=== PATIENT | female | born 1985 | race Hispanic/Latino ===

== ENCOUNTER 2018-04-05 07:19 | Emergency (ER) | payer SELFPAY ==
[2018-04-05] MEDS ORDERED: NA CHLORIDE 0.9% 1,000 ML ONE (08:05)
[2018-04-05 08:19] LABS: Absolute Lymphocytes (CBC) 0.9 K/uL (0.7-4.9); Absolute Monocytes 0.4 K/uL (0.1-1.3); Absolute Neutrophil 3.2 K/uL (1.8-8.0); Basophils % 0.3 % (0-1.3); Eosinophils % 2.6 % (0-4.4); Hematocrit 29.9 % (36.0-45.0); Lymphocytes % 18.9 % (15.3-44.8); MCV 82.1 fL (80-100); MPV 9.1 fL (7.6-11.3); Monocytes % 7.8 % (3.3-12.3); RBC Red Blood Cell Count 3.64 M/uL (3.86-4.86)
[2018-04-05 08:57] LABS: Potassium 3.4 mmol/L (3.5-5.1)
[2018-04-05] MEDS ORDERED: KETOROLAC 30 MG/ML INJ ONE (09:23)
--- NOTE | 2018-04-05 10:49 | ER ---
Nurse's Notes [facility] Name: Wendy Garland Age: 32 yrs Sex: Female : 1985 Arrival Date: 04/05/2018 Time: 07:23 Bed 20 Private MD: Ligia Mosley Diagnosis: Fever, unspecified;Acute pharyngitis Presentation: 04/05 07:42 Presenting complaint: Patient states: has had pressure in head and mild neck and back iw pain X 3 days, also has sore throat. Transition of care: patient was not received from another setting of care. Onset of symptoms was April 02, 2018. Risk Assessment: Do you want to hurt yourself or someone else? Patient reports no desire to harm self or others. Initial Sepsis Screen: Does the patient meet any 2 criteria? No. Patient's initial sepsis screen is negative. Does the patient have a suspected source of infection? No. Patient's initial sepsis screen is negative. Care prior to arrival: None. 07:42 Method Of Arrival: Ambulatory iw 07:42 Acuity: KIMBERLY 3 iw Triage Assessment: 07:45 Headache History: Denies prior headaches. General: Appears in no apparent distress. jl7 uncomfortable, Behavior is calm, cooperative, appropriate for age, Pt reports temperature of 103 F., reports taking ibuprofen prior to arrival.. Pain: Complains of pain in head, neck and throat. Pain does not radiate. Pain currently is 7 out of 10 on a pain scale. Quality of pain is described as sharp, Pain began Thurs evening. Also complains of decreased appetite. 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 - Social history:: Smoking status: Patient/guardian denies using tobacco. - Ebola Screening: : Patient negative for fever greater than or equal to 101.5 degrees Fahrenheit, and additional compatible Ebola Virus Disease symptoms Patient denies exposure to infectious person Patient denies travel to an Ebola-affected area in the 21 days before illness onset No symptoms or risks identified at this time. Screenin:45 Abuse screen: Denies threats or abuse. Denies injuries from another. Nutritional jl7 screening: No deficits noted. Tuberculosis screening: No symptoms or risk factors identified. Fall Risk IV access (20 points). Total Luna Fall Scale indicates No Risk (0-24 pts). Assessment: 07:45 General: Appears in no apparent distress. uncomfortable, Behavior is calm, cooperative, jl7 appropriate for age. Pain: Complains of pain in forehead, bilateral aspects of neck, and throat Pain does not radiate. Pain currently is 7 out of 10 on a pain scale. Quality of pain is described as sharp, throbbing, Pain began 2-3 days ago. Is continuous, Noted to be grimacing. Neuro: Level of Consciousness is awake, alert, obeys commands, Oriented to person, place, time, situation, Moves all extremities. Gait is steady, Speech is normal, Facial symmetry appears normal, Pupils are PERRLA. Cardiovascular: Patient's skin is warm and dry. Respiratory: Airway is patent Respiratory effort is even, unlabored, Respiratory pattern is regular, symmetrical. GI: No signs and/or symptoms were reported involving the gastrointestinal system. : No signs and/or symptoms were reported regarding the genitourinary system. EENT: Throat is clear has enlarged tonsils bilaterally. Derm: Skin is pink, warm \\T\\ dry. Musculoskeletal: No signs and/or symptoms reported regarding the musculoskeletal system. 08:09 Reassessment: Pt states "My boyfriend thinks I got sick from eating at [employer] in [address] I ate a burger, was almost finished eating it when I saw rat poop on the bun and the terry. I told the respiratory manager who said it was nothing. And I called the health department and let them know too." Pt reports eating at [employer] on and evening is when she started feeling sick. 09:00 Reassessment: Patient and/or family updated on plan of care and expected duration. Pain jl7 level reassessed. Patient is alert, oriented x 3, equal unlabored respirations, skin warm/dry/pink. 10:00 Reassessment: Patient and/or family updated on plan of care and expected duration. Pain jl7 level reassessed. Patient is alert, oriented x 3, equal unlabored respirations, skin warm/dry/pink. Patient states feeling better. Patient states symptoms have improved. Vital Signs: 07:45 BP 130 / 77; Pulse 77; Resp 18 S; Temp 98.6(O); Pulse Ox 98% on R/A; Weight 66.22 kg; iw Height 5 ft. 1 in. (154.94 cm); Pain 6/10; 08:04 BP 103 / 77; Pulse 80; Resp 16; Temp 98.9(O); Pulse Ox 99% on R/A; mh5 09:14 BP 95 / 68; Pulse 69; Resp 16; Pulse Ox 98% on R/A; mh5 10:00 BP 99 / 59; Pulse 50; Resp 16; Pulse Ox 99% ; Pain 0/10; jl7 10:50 BP 96 / 58; Pulse 60; Resp 16; Pulse Ox 99% ; Pain 0/10; jl7 07:45 Body Mass Index 27.59 (66.22 kg, 154.94 cm) ED Course: 07:23 Patient arrived in ED. mr 07:23 Ligia Mosley MD is Private Physician. mr 07:33 El Field MD is Attending Physician. gs 07:43 Triage completed. iw 07:45 Arm band placed on. iw 07:45 Patient has correct armband on for positive identification. Placed in gown. Bed in low jl7 position. Call light in reach. Side rails up X 1. Pulse ox on. NIBP on. 07:52 Paco Gonzales RN is Primary Nurse. 7 08:03 Initial lab(s) drawn, by ct, sent to lab. Flu and/or RSV swab sent to lab. Strep swab 5 sent to lab. Inserted saline lock: 22 gauge in left antecubital area, using aseptic technique. Blood collected. 08:03 Lyman Screen Profile Sent. 5 08:04 Influenza Screen (a \\T\\ B) Sent. 5 08:04 Strep Sent. 5 08:04 Basic Metabolic Panel Sent. 5 08:04 CBC with Diff Sent. 5 10:55 No provider procedures requiring assistance completed. IV discontinued, intact, jl7 bleeding controlled, No redness/swelling at site. Pressure dressing applied. Administered Medications: 08:09 Drug: NS 0.9% 1000 ml Route: IV; Rate: 1 bolus; Site: left antecubital; jl7 09:10 Follow up: Response: No adverse reaction; IV Status: Completed infusion jl7 09:26 Drug: TORadol 30 mg Route: IVP; Site: left antecubital; jl7 09:56 Follow up: Response: No adverse reaction; Pain is decreased jl7 Outcome: 10:49 Discharge ordered by . bill 10:55 Discharged to home ambulatory. jl7 10:55 Condition: stable 10:55 Discharge instructions given to patient, Instructed on discharge instructions, follow up and referral plans. medication usage, Demonstrated understanding of instructions, follow-up care, medications, Prescriptions given X 1. 10:55 Patient left the ED. jl7 Signatures: Rhonda Petersen Irene, RN RN iw Martinez, Maria mh5 Leal, Jahala, RN RN jl7 El Field MD MD
--- NOTE | 2018-04-05 10:49 | EDPHYS ---
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 - Social history:: Smoking status: Patient/guardian denies using tobacco. - Ebola Screening: : Patient negative for fever greater than or equal to 101.5 degrees Fahrenheit, and additional compatible Ebola Virus Disease symptoms Patient denies exposure to infectious person Patient denies travel to an Ebola-affected area in the 21 days before illness onset No symptoms or risks identified at this time. Vital Signs: 07:45 BP 130 / 77; Pulse 77; Resp 18 S; Temp 98.6(O); Pulse Ox 98% on R/A; Weight 66.22 kg; iw Height 5 ft. 1 in. (154.94 cm); Pain 6/10; 08:04 BP 103 / 77; Pulse 80; Resp 16; Temp 98.9(O); Pulse Ox 99% on R/A; mh5 09:14 BP 95 / 68; Pulse 69; Resp 16; Pulse Ox 98% on R/A; mh5 10:00 BP 99 / 59; Pulse 50; Resp 16; Pulse Ox 99% ; Pain 0/10; jl7 10:50 BP 96 / 58; Pulse 60; Resp 16; Pulse Ox 99% ; Pain 0/10; jl7 07:45 Body Mass Index 27.59 (66.22 kg, 154.94 cm) iw MDM: 07:39 Patient medically screened. 04/05 07:39 Order name: CBC with Diff; Complete Time: 08:25 04/05 07:39 Order name: Basic Metabolic Panel; Complete Time: 09:17 04/05 07:39 Order name: Strep; Complete Time: 08:57 04/05 07:39 Order name: Influenza Screen (a \T\ B); Complete Time: 08:57 04/05 07:39 Order name: Bleckley Screen Profile; Complete Time: 10:45 04/05 08:36 Order name: Throat Culture EDMS Administered Medications: 08:09 Drug: NS 0.9% 1000 ml Route: IV; Rate: 1 bolus; Site: left antecubital; [facility] 09:10 Follow up: Response: No adverse reaction; IV Status: Completed infusion [facility] 09:26 Drug: TORadol 30 mg Route: IVP; Site: left antecubital; 7 09:56 Follow up: Response: No adverse reaction; Pain is decreased [facility] Disposition: 04/05/18 10:49 Discharged to Home. Impression: Fever, unspecified, Acute pharyngitis. - Condition is Stable. - Discharge Instructions: Fever, Adult, Viral Infections, Dssi-Bt-Heus. - Prescriptions for Naprosyn 500 mg Oral Tablet - take 1 tablet by ORAL route 2 times per day take with food; 20 tablet. - Medication Reconciliation Form, Thank You Letter, Antibiotic Education, Prescription Opioid Use form. - Follow up: Private Physician; When: 1 - 2 days; Reason: Re-evaluation by your physician. Addendum: 04/26/2018 16:12 Addendum: CC- fever sore throat HPI - onset 2 days ago, throat pain with swallowing, no g s dysphagia voice changes, body aches neck pain back pain. no alleviating factors. PMH/Allergies reviewed/Sochx-lives at home VSS- Gen-no distress nontoxic Head- normal no injury ENT- throat erythema no mass nl voice no stridor, Neck- no mass no meningismus. CV-rrr no m P - lungs cta, nl work of breathing GI-ab soft nontender Skin-warm no rash Neuro-no deficits, a/o x 4 MDM-ddx bact infection virus, bronchitis , symptoms resolved will discharge home explained results. Signatures: Dispatcher [employer] EDMS Kimberly Russo RN RN iw Leal, Jahala, RN RN jl7 El Field MD MD Corrections: (The following items were deleted from the chart) 04/05 10:55 10:49 04/05/2018 10:49 Discharged to Home. Impression: Fever, unspecified; Acute jl7 pharyngitis. Condition is Stable. Forms are Medication Reconciliation Form, Thank You Letter, Antibiotic Education, Prescription Opioid Use. Follow up: Private Physician; When: 1 - 2 days; Reason: Re-evaluation by your physician. gs
[2018-04-05 11:01] VITALS: TEMP 98.9
[2018-04-05 11:03] VITALS: O2SAT 99
[2018-04-05 11:04] VITALS: BP 96/58
== END 2018-04-05 10:55 | disposition home or self-care (01) ==
LOC: ER 07:19
DX: R50.9 Fever, unspecified (principal); J02.9 Acute pharyngitis, unspecified; J45.909 Unspecified asthma, uncomplicated
CPT/HCPCS: 36415; 80048; 85025; 86308; 87070; 87081; 87804; 96361; 96374; 99284; J7030

== ENCOUNTER 2018-06-28 21:47 | Emergency (ER) | payer SELFPAY ==
[2018-06-28] MEDS ORDERED: IBUPROFEN 200 MG TAB PO ONE (23:42)
[2018-06-28] MEDS ORDERED: HYDROCODONE/APAP 7.5/325 MG TAB ONE (23:42)
[2018-06-28] MEDS ORDERED: IBUPROFEN 400 MG TAB ONE (23:42)
[2018-06-29 00:28] LABS: Urine Bacteria <20 /HPF (<20); Urine Culture Reflex Order NOT NEEDED; Urine RBC <5 /HPF (NONE SEEN)
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
[2018-06-29 01:18] VITALS: TEMP 98.2
[2018-06-29 01:21] VITALS: BP 108/92; O2SAT 100
[2018-06-29 01:54] LABS: Urine Blood 1+ (NEG); Urine Glucose NEGATIVE (NEG); Urine Protein NEGATIVE (NEG)
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
== END 2018-06-29 01:13 | disposition home or self-care (01) ==
LOC: ER 21:47
DX: S16.1XXA Strain of muscle, fascia and tendon at neck level, initial encounter (principal); S40.012A Contusion of left shoulder, initial encounter; M41.9 Scoliosis, unspecified; V49.40XA Driver injured in collision with unspecified motor vehicles in traffic accident, initial encounter; F41.9 Anxiety disorder, unspecified; F32.9 Major depressive disorder, single episode, unspecified
CPT/HCPCS: 71046; 72040; 72100; 72170; 81003; 81015; 81025; 99283

== ENCOUNTER 2018-12-24 08:52 | Emergency (ER) | payer SELFPAY ==
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
[2018-12-24] MEDS ORDERED: HYDROCODONE/APAP 10/325 TAB ONE (09:44)
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
--- NOTE | 2018-12-24 11:35 | EDPHYS ---
Physician Documentation [facility] Name: Wendy Garland Age: 33 yrs Sex: Female : 1985 Arrival Date: 12/24/2018 Time: 08:55 Bed 19 Private MD: Ligia Mosley ED Physician Michael Bell HPI: 12/24 09:42 This 33 yrs old Female presents to ER via Ambulatory with complaints of Fall kdr Injury, Hip Pain, Leg Pain. 09:42 Details of fall: The patient fell from an upright position, while walking. Onset: The kdr symptoms/episode began/occurred suddenly, last night. Associated injuries: The patient sustained injury to the low back, pain, left Achilles and left heel, decreased range of motion, swelling. Severity of symptoms: At their worst the symptoms were mild, moderate, just prior to arrival, in the emergency department the symptoms are unchanged. The patient has not experienced similar symptoms in the past. The patient has not recently seen a physician. The patient fell down some steps and felt a pop like a rubber band pop in the back of her left calf. She has minimal swelling of the left ankle \T\ foot. Very tender at insertion site of Achilles tendon. She has limited plantar/dorsiflexion of the foot primarily due to pain. Neuro intact distal to the injury though initially, she had numbness and tingling to the great toe on the same side - that has resolved. 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 - Social history:: Smoking status: Patient/guardian denies using tobacco. - Immunization history: Last tetanus immunization: - up to date. - Ebola Screening: : No symptoms or risks identified at this time. ROS: 09:42 Constitutional: Negative for fever, chills, and weight loss, Eyes: Negative for injury, kdr pain, redness, and discharge, Neck: Negative for injury, pain, and swelling, Cardiovascular: Negative for chest pain, palpitations, and edema, Respiratory: Negative for shortness of breath, cough, wheezing, and pleuritic chest pain, Abdomen/GI: Negative for abdominal pain, nausea, vomiting, diarrhea, and constipation, Back: Negative for injury and pain, : Negative for injury, bleeding, discharge, and swelling, Skin: Negative for injury, rash, and discoloration, Neuro: Negative for headache, weakness, numbness, tingling, and seizure activity. Psych: Negative for depression, anxiety, suicide ideation, homicidal ideation, and hallucinations, Allergy/Immunology: Negative for hives, rash, and allergies, Endocrine: Negative for neck swelling, polydipsia, polyuria, polyphagia, and marked weight changes, Hematologic/Lymphatic: Negative for swollen nodes, abnormal bleeding, and unusual bruising. 09:42 MS/extremity: Positive for injury or acute deformity, decreased range of motion, pain, swelling, tenderness, of the left Achilles and left heel. Exam: 09:42 Constitutional: This is a well developed, well nourished patient who is awake, alert, kdr and in no acute distress. 09:42 Musculoskeletal/extremity: Extremities: ROM: limited active range of motion, in the left lateral ankle, lateral aspect of left foot, left Achilles, left heel, left medial ankle, medial aspect of left foot, anterior aspect of left ankle and dorsum of left foot, limited passive range of motion, Circulation is intact in all extremities. Sensation intact. Weight bearing: is unable to bear weight, Tendon exam: postive for Due to pain, the patient has limited ROM of the foot. Vital Signs: 09:11 BP 106 / 76; Pulse 61; Resp 16; Temp 98.2; Pulse Ox 100% on R/A; Pain 8/10; hb 10:00 BP 122 / 74; Pulse 66; Resp 16; Pulse Ox 100% on R/A; hb 11:00 BP 112 / 74; Pulse 61; Resp 16; Pulse Ox 100% on R/A; hb Vladimir Coma Score: 09:11 Eye Response: spontaneous(4). Verbal Response: oriented(5). Motor Response: obeys hb commands(6). Total: 15. Trauma Score (Adult): 09:11 Eye Response: spontaneous(1); Verbal Response: oriented(1); Motor Response: obeys hb commands(2); Systolic BP: > 89 mm Hg(4); Respiratory Rate: 10 to 29 per min(4); Vladimir Score: 15; Trauma Score: 12 10:00 Eye Response: spontaneous(1); Verbal Response: oriented(1); Motor Response: obeys hb commands(2); Systolic BP: > 89 mm Hg(4); Respiratory Rate: 10 to 29 per min(4); Vladimir Score: 15; Trauma Score: 12 11:00 Eye Response: spontaneous(1); Verbal Response: oriented(1); Motor Response: obeys hb commands(2); Systolic BP: > 89 mm Hg(4); Respiratory Rate: 10 to 29 per min(4); Kingsland Score: 15; Trauma Score: 12 Procedures: 09:42 Splinting: Splint applied to lateral aspect of left calf, left lateral ankle and kdr lateral aspect of left foot using Orthoglass splint, applied by tech. post reduction film - Examined by me, post splint application: neurovascular intact, Patient tolerated well. MDM: 09:42 Data reviewed: vital signs, nurses notes, radiologic studies. Counseling: I had a kdr detailed discussion with the patient and/or guardian regarding: the historical points, exam findings, and any diagnostic results supporting the discharge/admit diagnosis, radiology results, the need for outpatient follow up. 11:35 Patient medically screened. kdr 12/24 09:30 Order name: Lumbar Spine (3 Views) XRAY; Complete Time: 11:28 kdr 12/24 09:30 Order name: Ankle Left 3 View XRAY; Complete Time: 11:28 kdr 12/24 09:33 Order name: Splint: Short leg from knee to toes; Complete Time: 11:38 kdr 12/24 09:33 Order name: Crutches; Complete Time: 11:38 kdr Administered Medications: 09:34 Drug: [place] 10 mg-325 mg 1 tabs Route: PO; em 10:00 Follow up: Response: No adverse reaction; Pain is decreased em Disposition: 12/24/18 11:35 Discharged to Home. Impression: Other specified injury of left Achilles tendon. - Condition is Fair. - Discharge Instructions: Partial (Incomplete) Achilles Tendon Rupture. - Prescriptions for Tylenol- Codeine #3 300-30 mg Oral Tablet - take 2 tablet by ORAL route every 6 hours As needed; 30 tablet. - Medication Reconciliation Form, Thank You Letter, Prescription Opioid Use, Work release form form. - Follow up: Private Physician; When: 2 - 3 days; Reason: If symptoms return, Further diagnostic work-up, Recheck today's complaints, Continuance of care, Re-evaluation by your physician. Follow up: Long Neal MD; When: 2 - 3 days; Reason: If symptoms return, Further diagnostic work-up, Recheck today's complaints, Continuance of care, Re-evaluation by your physician. - Problem is new. - Symptoms have improved. - Notes: This is a serious injuury and requires prompt follow-up and possible repair Signatures: Dispatcher [employer] Michael Parmar MD MD [facility] Earl Perez, AIR TRAFFIC CONTROL EQUIPMENT REPAIRER AIR TRAFFIC CONTROL EQUIPMENT REPAIRER em Moriah Gutierrez, RN RN Corrections: (The following items were deleted from the chart) 11:49 11:35 12/24/2018 11:35 Discharged to Home. Impression: Other specified injury of left em Achilles tendon. Condition is Fair. Forms are Medication Reconciliation Form, Thank You Letter, Antibiotic Education, Prescription Opioid Use. Follow up: Private Physician; When: 2 - 3 days; Reason: If symptoms return, Further diagnostic work-up, Recheck today's complaints, Continuance of care, Re-evaluation by your physician. Follow up: Long Neal; When: 2 - 3 days; Reason: If symptoms return, Further diagnostic work-up, Recheck today's complaints, Continuance of care, Re-evaluation by your physician. Problem is new. Symptoms have improved. kdr
--- NOTE | 2018-12-24 11:35 | ER ---
Nurse's Notes [facility] Name: Wendy Garland Age: 33 yrs Sex: Female : 1985 Arrival Date: 12/24/2018 Time: 08:55 Bed 19 Private MD: Ligia Mosley Diagnosis: Other specified injury of left Achilles tendon Presentation: 12/24 09:11 Presenting complaint: Patient states: Slipped on stairs last night, felt and heard a hb snapping sound in left calf, c/o pain in left low back, left hip, left calf, and left ankle 8/10. Ambulated to room without assistance, favoring left side. Transition of care: patient was not received from another setting of care. Onset of symptoms was December 24, 2018 at 02:00. Risk Assessment: Do you want to hurt yourself or someone else? Patient reports no desire to harm self or others. Care prior to arrival: None. 09:11 Method Of Arrival: Ambulatory 09:11 Acuity: KIMBERLY 4 09:16 Mechanism of Injury: Fall down steps. Trauma event details: Injury occurred in the [facility], Injury occurred: at home. Injury occurred: December 24, 2018 Injury occurred at: 02:00. 09:17 Initial Sepsis Screen: Does the patient meet any 2 criteria? No. Patient's initial em sepsis screen is negative. Does the patient have a suspected source of infection? No. Patient's initial sepsis screen is negative. 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 LMP 12/06/2018 Trauma Activation: Not Applicable Physician: ED Physician; Name: ; Notified At: ; Arrived At: Physician: General Surgeon; Name: ; Notified At: ; Arrived At: Physician: Radiology; Name: ; Notified At: ; Arrived At: Physician: Respiratory; Name: ; Notified At: ; Arrived At: Physician: Lab; Name: ; Notified At: ; Arrived At: Historical: - Allergies: :14 NKA; hb - Home Meds: :14 Abilify 5 mg Oral tab 1 tab once daily [Active]; albuterol sulfate 90 mcg/actuation Inhl HFAA 2 puffs as needed [Active]; Celexa 40 mg Oral tab 1 tab once daily [Active]; DOXYPEN daily [Active]; Neurontin 100 mg Oral cap 100 mg in am, 100 mg mid-day and 200 mg at night [Active]; levothyroxine oral 1 tab once daily [Active]; - PMHx: 09:14 Anxiety; Asthma; Bronchitis; Depression; insomnia; scoliosis; hb - PSHx: 09:14 Appendectomy; Tubal ligation; hb - Immunization history:: Adult Immunizations up to date. - Social history:: Smoking status: Patient/guardian denies using tobacco. - Immunization history: Last tetanus immunization: - up to date. - Ebola Screening: : No symptoms or risks identified at this time. Screenin:14 Abuse screen: Denies threats or abuse. Denies injuries from another. Nutritional hb screening: No deficits noted. Tuberculosis screening: No symptoms or risk factors identified. Fall Risk None identified. Primary Survey: :14 NO uncontrolled hemorrhage observed. A: The patient is alert. Airway: patent. hb Breathing/Chest: Respiratory pattern: regular, Respiratory effort: spontaneous, unlabored, Breath sounds: clear, bilaterally. Chest inspection: symmetrical rise and fall of the chest. Circulation: Pulses: palpable . Skin color: pink, Skin temperature: warm, dry. Disability Alert. Exposure/Environment: There is no evidence of uncontrolled external bleeding. 10:00 Reassessment Airway Airway Patent Breathing/Chest Respiratory pattern Regular hb Respiratory effort Spontaneous Unlabored Chest inspection Symmetrical Circulation Color Goodman Temperature Warm Dry Disability Alert. 11:00 Reassessment Airway Airway Patent Breathing/Chest Respiratory pattern Regular hb Respiratory effort Spontaneous Unlabored Chest inspection Symmetrical Circulation Color Goodman Temperature Warm Dry Disability Alert. Secondary Survey: :14 HEENT: No deficits noted. Gastrointestinal: No deficits noted. : No deficits noted. hb No signs and/or symptoms were reported regarding the genitourinary system. Musculoskeletal: Reports pain in left low back, left hip, left calf, left ankle. Assessment: 09:17 General: Appears in no apparent distress. Behavior is calm, cooperative. Pain: Pain hb currently is 8 out of 10 on a pain scale. Neuro: Level of Consciousness is awake, alert, obeys commands, Oriented to person, place, time, situation. EENT: No deficits noted. No signs and/or symptoms were reported regarding the EENT system. Cardiovascular: No deficits noted. Respiratory: Airway is patent Trachea midline Respiratory effort is even, unlabored, Respiratory pattern is regular, symmetrical, Breath sounds are clear bilaterally. GI: No signs and/or symptoms were reported involving the gastrointestinal system. : No signs and/or symptoms were reported regarding the genitourinary system. Derm: Skin is intact, is healthy with good turgor, Skin is pink, warm \T\ dry. Musculoskeletal: Reports pain in left low back, left hip, left calf, left ankle. 10:00 Reassessment: Patient appears in no apparent distress at this time. No changes from previously documented assessment. Patient and/or family updated on plan of care and expected duration. Pain level reassessed. Patient is alert, oriented x 3, equal unlabored respirations, skin warm/dry/pink. 10:38 Reassessment: Patient appears in no apparent distress at this time. Patient and/or em family updated on plan of care and expected duration. Pain level reassessed. Patient is alert, oriented x 3, equal unlabored respirations, skin warm/dry/pink. pending x-ray results Patient states feeling better. 11:00 Reassessment: Patient appears in no apparent distress at this time. Patient and/or hb family updated on plan of care and expected duration. Pain level reassessed. Patient is alert, oriented x 3, equal unlabored respirations, skin warm/dry/pink. Vital Signs: 09:11 BP 106 / 76; Pulse 61; Resp 16; Temp 98.2; Pulse Ox 100% on R/A; Pain 8/10; hb 10:00 BP 122 / 74; Pulse 66; Resp 16; Pulse Ox 100% on R/A; hb 11:00 BP 112 / 74; Pulse 61; Resp 16; Pulse Ox 100% on R/A; hb Vladimir Coma Score: 09:11 Eye Response: spontaneous(4). Verbal Response: oriented(5). Motor Response: obeys hb commands(6). Total: 15. Trauma Score (Adult): 09:11 Eye Response: spontaneous(1); Verbal Response: oriented(1); Motor Response: obeys hb commands(2); Systolic BP: > 89 mm Hg(4); Respiratory Rate: 10 to 29 per min(4); Clinton Score: 15; Trauma Score: 12 10:00 Eye Response: spontaneous(1); Verbal Response: oriented(1); Motor Response: obeys hb commands(2); Systolic BP: > 89 mm Hg(4); Respiratory Rate: 10 to 29 per min(4); Clinton Score: 15; Trauma Score: 12 11:00 Eye Response: spontaneous(1); Verbal Response: oriented(1); Motor Response: obeys hb commands(2); Systolic BP: > 89 mm Hg(4); Respiratory Rate: 10 to 29 per min(4); Vladimir Score: 15; Trauma Score: 12 ED Course: 08:55 Patient arrived in ED. as 08:56 Ligia Mosley MD is Private Physician. as 09:10 Michael Bell MD is Attending Physician. kdr 09:13 Triage completed. hb 09:13 Earl Perez LVN is Primary Nurse. em 09:13 Arm band placed on. hb 09:14 Patient has correct armband on for positive identification. Bed in low position. Call hb light in reach. Side rails up X 1. 09:16 Patient maintains SpO2 saturation greater than 95% on room air. Thermoregulation: warm hb blanket given to patient. 09:52 X-ray completed. Patient tolerated procedure well. Patient moved back from radiology. jb2 09:53 Lumbar Spine (3 Views) XRAY In Process Unspecified. EDMS 09:53 Ankle Left 3 View XRAY In Process Unspecified. EDMS 11:29 Long Neal MD is Referral Physician. kdr 11:38 No provider procedures requiring assistance completed. Patient did not have IV access hb during this emergency room visit. Administered Medications: 09:34 Drug: [place] 10 mg-325 mg 1 tabs Route: PO; em 10:00 Follow up: Response: No adverse reaction; Pain is decreased em Intake: 11:38 PO: 0ml; Total: 0ml. hb Output: 11:38 Urine: 0ml; Total: 0ml. hb Outcome: 11:35 Discharge ordered by MD. kdr 11:38 Discharged to home ambulatory. hb 11:38 Condition: stable 11:38 Discharge instructions given to patient, Instructed on discharge instructions, follow up and referral plans. medication usage, Demonstrated understanding of instructions, follow-up care, medications, Prescriptions given X 1. 11:38 Patient's length of stay was not longer than 2 hours. 11:49 Patient left the ED. em Signatures: Dispatcher [employer] EDMS Michael Bell MD MD kdr Buechter, Jesse jb2 Earl Perez, LUMPIA WRAPPER MAKER LUMPIA WRAPPER MAKER Liana Ritter Heather, RN RN hb
[2018-12-24 11:54] VITALS: TEMP 98.2; O2SAT 100
[2018-12-24 11:56] VITALS: BP 112/74
== END 2018-12-24 11:49 | disposition home or self-care (01) ==
LOC: ER 08:52
PROC: 2W3RX1Z Immobilization of Left Lower Leg using Splint (ICD-10-PCS; principal; 2018-12-24)
DX: S99.912A Unspecified injury of left ankle, initial encounter (principal); W10.9XXA Fall (on) (from) unspecified stairs and steps, initial encounter; M54.5 Low back pain; F41.9 Anxiety disorder, unspecified; F32.9 Major depressive disorder, single episode, unspecified; J45.909 Unspecified asthma, uncomplicated
CPT/HCPCS: 72100; 99284

== ENCOUNTER 2019-07-09 12:55 | Emergency (ER) | payer SELFPAY ==
[2019-07-09 13:42] LABS: Urine Blood NEGATIVE (NEG); Urine Glucose NEGATIVE (NEG); Urine Protein NEGATIVE (NEG); Urine Specific Gravity 1.025 (1.005-1.030); Urine pH 5.5 (5.0-7.0)
[2019-07-09] MEDS ORDERED: NA CHLORIDE 0.9% 1,000 ML ONE (13:48)
[2019-07-09 13:58] LABS: Urine Bacteria <20 /HPF (<20); Urine Culture Reflex Order NOT NEEDED; Urine Mucus MOD /HPF (NONE SEEN); Urine RBC <5 /HPF (NONE SEEN)
[2019-07-09 14:02] LABS: Absolute Lymphocytes (CBC) 1.9 K/uL (0.7-4.9); Basophils % 0.4 % (0-1.3); Hematocrit 30.9 % (36.0-45.0); Lymphocytes % 24.8 % (15.3-44.8); MPV 9.7 fL (7.6-11.3); RBC Red Blood Cell Count 3.73 M/uL (3.86-4.86)
[2019-07-09 14:15] LABS: BUN Blood Urea Nitrogen 12 mg/dL (7-18); Bicarbonate 28 mmol/L (21-32); Glucose Level 94 mg/dL (74-106); Potassium 3.7 mmol/L (3.5-5.1); Sodium Level 139 mmol/L (136-145)
[2019-07-09 14:16] LABS: HCG, Quantitative < 1 mIU/mL (1-3)
[2019-07-09] MEDS ORDERED: KETOROLAC 30 MG/ML INJ ONE (14:22)
--- NOTE | 2019-07-09 15:43 | RAD REPORT ---
EXAM DESCRIPTION: CT - Abdomen Pelvis W Contrast - 07/09/2019 3:23 pm CLINICAL HISTORY: lower abdomen pain COMPARISON: CT study September 2017 TECHNIQUE: Biphasic, helical CT imaging of the abdomen and pelvis was performed following 100 ml non -ionic IV contrast. No oral contrast. All CT scans are performed using dose optimization technique as appropriate and may include automated exposure control or mA/KV adjustment according to patient size. FINDINGS: No suspicious findings in the lung bases. The liver, spleen, and pancreas show no suspicious findings. Gallbladder and biliary tree are also wi thout suspicious finding. Symmetric renal function is seen with no hydronephrosis or suspicious renal mass. No pyelonephritis o r acute parenchymal process. Urinary bladder is fully contracted precluding assessment. No bladder ca lculus seen. No acute uterine abnormality. Small physiologic follicles or cysts noted in the ovaries. An acute PUBLIC ADDRESS SYSTEM MECHANIC process is not identifiable. No adrenal abnormalities. No gastric dilatation or wall thickening. No dilated small bowel loops. Appendectomy clips are presen t. Mild wall thickening is present in the descending colon and questionably in the midportion transve rse colon. No mass. A mild colitis is suspected and needs clinical correlation. No free air or pneumatosis. Trace fluid in the cul-de-sac is within physiologic limits. No mass or bulky lymphadenopathy. Small fat only umbilical hernia present. No suspicious bony findings. IMPRESSION: No bowel obstruction, free air or surgically emergent finding. Wall thickening in the mid transverse colon and descending colon are possible sites of a mild colitis . This needs clinical correlation. No acute or PUBLIC ADDRESS SYSTEM MECHANIC process identifiable.
--- NOTE | 2019-07-09 15:58 | ER ---
Nurse's Notes [facility] Name: Wendy Garland Age: 33 yrs Sex: Female : 1985 Arrival Date: 07/09/2019 Time: 12:57 Bed 26 Private MD: Diagnosis: Left sided colitis Presentation: 07/09 13:07 Presenting complaint: Patient states: lower abd pain that began last night, now worse ss when walking and radiates towards bilateral flank. Patient reports positive UPT 06/24. Transition of care: patient was not received from another setting of care. Onset of symptoms was July 08, 2019. Risk Assessment: Do you want to hurt yourself or someone else? Patient reports no desire to harm self or others. Initial Sepsis Screen: Does the patient meet any 2 criteria? No. Patient's initial sepsis screen is negative. Does the patient have a suspected source of infection? No. Patient's initial sepsis screen is negative. Note Patient reports an abnormal cycle, but verbalizes that her pain feels like menstrual cramps, but worse. Care prior to arrival: None. 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 - Social history:: Smoking status: Patient/guardian denies using tobacco. - Ebola Screening: : Patient denies exposure to infectious person Patient denies travel to an Ebola-affected area in the 21 days before illness onset. Screenin:35 Abuse screen: Denies threats or abuse. Nutritional screening: No deficits noted. em Tuberculosis screening: No symptoms or risk factors identified. Fall Risk None identified. Assessment: 13:35 General: Appears in no apparent distress. comfortable, Behavior is calm, cooperative, em appropriate for age, Denies fever. Pain: Complains of pain in suprapubic area Pain currently is 8 out of 10 on a pain scale. Quality of pain is described as crampy. Neuro: Level of Consciousness is awake, alert, obeys commands, Oriented to person, place, time, situation, Appropriate for age. Cardiovascular: Capillary refill < 3 seconds Patient's skin is warm and dry. Respiratory: Airway is patent Respiratory effort is even, unlabored, Respiratory pattern is regular, symmetrical. GI: Abdomen is flat, Bowel sounds present X 4 quads. Abd is soft X 4 quads Abdomen is tender to palpation in suprapubic area, right lower quadrant and left lower quadrant Patient currently denies nausea, vomiting. : Urine is clear, Reports vaginal bleeding that is Denies burning with urination. Derm: Skin is intact, is healthy with good turgor, Skin is pink, warm \T\ dry. Musculoskeletal: Capillary refill < 3 seconds, Range of motion: intact in all extremities. 13:42 General: The previous assessment is accurate, call light remains within reach. . ss 15:12 Reassessment: Patient appears in no apparent distress at this time. wheeled to CT via em wheelchair. Vital Signs: 13:10 Resp 16; Weight 61.23 kg; Height 5 ft. 1 in. (154.94 cm); Pain 8/10; ss 13:22 BP 113 / 82; Pulse 86; Temp 98.6(TE); Pulse Ox 100% on R/A; em 13:10 Body Mass Index 25.51 (61.23 kg, 154.94 cm) ss ED Course: 12:57 Patient arrived in ED. as 13:09 Triage completed. ss 13:10 Arm band placed on left wrist. ss 13:13 Earl Perez LVN is Primary Nurse. em 13:15 David Dumont PA is PHCP. cp 13:15 El Field MD is Attending Physician. cp 13:29 Urine collected: clean catch specimen, clear, zay colored. Patient maintains SpO2 jp3 saturation greater than 95% on room air. 13:30 Bed in low position. Call light in reach. Verbal reassurance given. Pulse ox on. NIBP jp3 on. 13:31 Urine Microscopic Only Sent. jp3 13:45 Initial lab(s) drawn, by me, sent to lab. Inserted saline lock: 22 gauge in right em antecubital area, using aseptic technique. Blood collected. 15:24 CT Abd/Pelvis - IV Contrast Only In Process Unspecified. EDMS 15:57 Nitin So MD is Referral Physician. cp 16:23 No provider procedures requiring assistance completed. IV discontinued, intact, em bleeding controlled, No redness/swelling at site. Pressure dressing applied. Administered Medications: 13:59 Drug: NS 0.9% 1000 ml Route: IV; Rate: 1 bolus; Site: right antecubital; em 16:22 Follow up: IV Status: Completed infusion; IV Intake: 1000ml em 14:26 Drug: TORadol - Ketorolac 15 mg Route: IVP; Site: right antecubital; ss 15:20 Follow up: Response: No adverse reaction; Pain is decreased em 16:21 Drug: metroNIDAZOLE 500 mg Route: PO; em 16:22 Follow up: Response: Medication administered at discharge. em 16:22 Drug: Cipro 500 mg Route: PO; em 16:23 Follow up: Response: Medication administered at discharge. em Intake: 16:22 IV: 1000ml; Total: 1000ml. em Outcome: 15:58 Discharge ordered by MD. cp 16:23 Discharged to home ambulatory. em 16:23 Condition: good 16:23 Discharge instructions given to patient, Instructed on discharge instructions, follow up and referral plans. medication usage, Demonstrated understanding of instructions, follow-up care, medications, Prescriptions given X 4. 16:24 Patient left the ED. em Signatures: Dispatcher [employer] EDEarl Reynolds LVN LVN em Liana Nunes Shelby, RN RN David Bernal PA PA cp Rocael Gomez jp3 Corrections: (The following items were deleted from the chart) 13:10 13:07 Presenting complaint: Patient states: lower abd pain that began last night, now ss worse when walking and radiates towards bilateral flank ss
--- NOTE | 2019-07-09 15:59 | EDPHYS ---
Physician Documentation [facility] Name: Wendy Garland Age: 33 yrs Sex: Female : 1985 Arrival Date: 07/09/2019 Time: 12:57 Bed 26 Private MD: ED Physician El Field HPI: 07/09 13:30 This 33 yrs old Female presents to ER via Ambulatory with complaints of cp Abdominal Pain, Vaginal Bleeding. 13:30 The patient presents with abdominal pain in the lower abdomen. cp 13:30 Onset: The symptoms/episode began/occurred yesterday. The symptoms radiate to back. cp Associated signs and symptoms: Pertinent positives: vaginal bleeding, patient reports positive home test on 06-24-2019, Pertinent negatives: anorexia, blood in stools, chest pain, constipation, diarrhea, dysuria, fever, vomiting. 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 - Social history:: Smoking status: Patient/guardian denies using tobacco. - Ebola Screening: : Patient denies exposure to infectious person Patient denies travel to an Ebola-affected area in the 21 days before illness onset. ROS: 13:35 Constitutional: Negative for body aches, chills, fever, poor PO intake. cp 13:35 Eyes: Negative for injury, pain, redness, and discharge. cp 13:35 ENT: Negative for drainage from ear(s), ear pain, sore throat, difficulty swallowing, difficulty handling secretions. 13:35 Cardiovascular: Negative for chest pain, palpitations. 13:35 Respiratory: Negative for cough, shortness of breath, wheezing. 13:35 Abdomen/GI: Positive for abdominal pain, Negative for vomiting, diarrhea, constipation, anorexia, black/tarry stool, rectal bleeding. 13:35 Back: Positive for radiated pain. 13:35 : Positive for vaginal bleeding, Negative for urinary symptoms. 13:35 Neuro: Negative for altered mental status, headache, weakness. 13:35 All other systems are negative. Exam: 13:45 Constitutional: The patient appears in no acute distress, alert, awake, non-toxic, well cp developed, well nourished. 13:45 Head/Face: Normocephalic, atraumatic. cp 13:45 Eyes: Periorbital structures: appear normal, Conjunctiva: normal, no exudate, no injection, Sclera: no appreciated abnormality, Lids and lashes: appear normal, bilaterally. 13:45 ENT: External ear(s): are unremarkable, Nose: is normal, Mouth: is normal, Posterior pharynx: is normal, airway is patent, no erythema, no exudate. 13:45 Chest/axilla: Inspection: normal, Palpation: is normal, no crepitus, no tenderness. 13:45 Cardiovascular: Rate: normal, Rhythm: regular. 13:45 Respiratory: the patient does not display signs of respiratory distress, Respirations: normal, no use of accessory muscles, no retractions, no splinting, no tachypnea, labored breathing, is not present, Breath sounds: are clear throughout, no decreased breath sounds, no stridor, no wheezing. 13:45 Abdomen/GI: Inspection: abdomen appears normal, Bowel sounds: active, all quadrants, Palpation: soft, in all quadrants, moderate abdominal tenderness, in the right lower quadrant and left lower quadrant, rebound tenderness, is not appreciated, involuntary guarding, is not appreciated. 13:45 Back: pain, of the low back area. 13:45 Skin: no rash present. Vital Signs: 13:10 Resp 16; Weight 61.23 kg; Height 5 ft. 1 in. (154.94 cm); Pain 8/10; ss 13:22 BP 113 / 82; Pulse 86; Temp 98.6(TE); Pulse Ox 100% on R/A; em 13:10 Body Mass Index 25.51 (61.23 kg, 154.94 cm) ss MDM: 13:24 Patient medically screened. cp 15:57 Data reviewed: vital signs, nurses notes, lab test result(s), radiologic studies, CT cp scan. 15:57 Differential diagnosis: diverticulitis, gastritis, Ovarian Torsion, Pelvic Inflammatory cp Disease, Ureterolithiasis, urinary tract infection, , ectopic . 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 Response to treatment: the patient's symptoms have markedly improved after treatment, and as a result, I will discharge patient. ED course: VSS. Pain improved. Will discharge to home for continued monitoring. 07/09 13:16 Order name: Urine Microscopic Only; Complete Time: 14:11 cp 07/09 13:30 Order name: Urine Dipstick--Ancillary (enter results); Complete Time: 14:11 eb 07/09 13:30 Order name: Urine --Ancillary (enter results); Complete Time: 14:11 eb 07/09 13:33 Order name: Quantitative Hcg; Complete Time: 14:20 cp 07/09 13:33 Order name: Abo/rh Typing; Complete Time: 14:20 cp 07/09 13:33 Order name: Basic Metabolic Panel; Complete Time: 14:20 cp 07/09 13:16 Order name: Urine Dipstick-Ancillary (obtain specimen); Complete Time: 13:31 cp 07/09 13:16 Order name: Urine Test (obtain specimen); Complete Time: 13:31 cp 07/09 13:33 Order name: CBC with Diff; Complete Time: 14:11 cp 07/09 14:11 Interpretation: Normal except: RBC 3.73; HGB 10.5; HCT 30.9; RDW 15.7. cp 07/09 14:25 Order name: CT Abd/Pelvis - IV Contrast Only; Complete Time: 15:50 cp 07/09 13:33 Order name: IV Saline Lock; Complete Time: 13:49 cp 07/09 13:33 Order name: Labs collected and sent; Complete Time: 13:49 cp 07/09 13:33 Order name: NPO; Complete Time: 13:49 cp Administered Medications: 13:59 Drug: NS 0.9% 1000 ml Route: IV; Rate: 1 bolus; Site: right antecubital; em 16:22 Follow up: IV Status: Completed infusion; IV Intake: 1000ml em 14:26 Drug: TORadol - Ketorolac 15 mg Route: IVP; Site: right antecubital; ss 15:20 Follow up: Response: No adverse reaction; Pain is decreased em 16:21 Drug: metroNIDAZOLE 500 mg Route: PO; em 16:22 Follow up: Response: Medication administered at discharge. em 16:22 Drug: Cipro 500 mg Route: PO; em 16:23 Follow up: Response: Medication administered at discharge. em Disposition: 07/09/19 15:58 Discharged to Home. Impression: Left sided colitis. - Condition is Stable. - Discharge Instructions: Colitis. - Prescriptions for Bentyl 20 mg Oral Tablet - take 1 tablet by ORAL route every 6 hours As needed; 20 tablet. Cipro 500 mg Oral Tablet - take 1 tablet by ORAL route every 12 hours for 10 days; 20 tablet. Zofran 4 mg Oral Tablet - take 1 tablet by ORAL route every 12 hours As needed; 20 tablet. Metronidazole 500 mg Oral Tablet - take 1 tablet by ORAL route every 8 hours; 30 tablet. - Medication Reconciliation Form, Thank You Letter, Antibiotic Education, Prescription Opioid Use form. - Follow up: Nitin So MD; When: 2 - 3 days; Reason: colitis. - Problem is new. - Symptoms have improved. Signatures: Dispatcher [employer] EDOK Earl Perez, PROGRAM MEDICAL DIRECTOR PROGRAM MEDICAL DIRECTOR Glory Rueda RN RN ss aDvid Dumont PA PA cp Corrections: (The following items were deleted from the chart) 16:24 15:58 07/09/2019 15:58 Discharged to Home. Impression: Left sided colitis. Condition is em Stable. Forms are Medication Reconciliation Form, Thank You Letter, Antibiotic Education, Prescription Opioid Use. Follow up: Nitin So; When: 2 - 3 days; Reason: colitis. Problem is new. Symptoms have improved. cp
[2019-07-09] MEDS ORDERED: CIPROFLOXACIN HCL 500 MG TAB ONE (16:15)
[2019-07-09] MEDS ORDERED: metroNIDAZOLE 500 MG TABLET ONE (16:15)
[2019-07-09 18:54] VITALS: BP 113/82; O2SAT 100
[2019-07-09 19:03] VITALS: TEMP 98.7
== END 2019-07-09 16:24 | disposition home or self-care (01) ==
LOC: ER 12:55
DX: K51.50 Left sided colitis without complications (principal)
CPT/HCPCS: 36415; 74177; 80048; 81003; 81015; 81025; 84702; 85025; 86900; 86901; 96361; 96374; 99284; J7030; Q9967

== ENCOUNTER 2019-07-19 07:38 | Emergency (ER) | payer SELFPAY ==
[2019-07-19 08:10] LABS: Urine Blood NEGATIVE (NEG); Urine Glucose NEGATIVE (NEG); Urine Protein NEGATIVE (NEG); Urine Specific Gravity >1.030 (1.005-1.030)
[2019-07-19] MEDS ORDERED: MORPHINE 2 MG/ML SYR ONE ×2 (08:11→09:16)
[2019-07-19] MEDS ORDERED: FAMOTIDINE 20 MG/2 ML VIAL IV ONE (08:11)
[2019-07-19] MEDS ORDERED: ONDANSETRON 4 MG/2 ML VIAL ONE (08:11)
[2019-07-19] MEDS ORDERED: NA CHLORIDE 0.9% 1,000 ML ONE (08:12)
[2019-07-19 08:15] LABS: Basophils % 0.3 % (0-1.3); Hematocrit 32.1 % (36.0-45.0); Lymphocytes % 29.8 % (15.3-44.8); MPV 9.3 fL (7.6-11.3); RBC Red Blood Cell Count 3.88 M/uL (3.86-4.86)
[2019-07-19 08:31] LABS: Potassium 3.4 mmol/L (3.5-5.1)
[2019-07-19 08:32] LABS: Albumin 3.9 g/dL (3.4-5.0); Bilirubin Direct 0.2 mg/dL (0-0.2); Bilirubin Total 0.9 mg/dL (0.2-1.0); Protein, Total 8.4 g/dL (6.4-8.2)
--- NOTE | 2019-07-19 08:45 | EDPHYS ---
Physician Documentation [facility] Name: Wendy Garland Age: 33 yrs Sex: Female : 1985 Arrival Date: 07/19/2019 Time: 07:40 Bed 5 Private MD: Ligia Mosley ED Physician David Nina HPI: 07/19 08:01 This 33 yrs old Female presents to ER via Ambulatory with complaints of rosamaria Abdominal Pain, Vomiting. 08:01 The patient presents to the emergency department with nausea, vomiting. Onset: The rosamaria symptoms/episode began/occurred 5 day(s) ago. Possible causes: unknown. The symptoms are aggravated by food , The symptoms are alleviated by nothing. Associated signs and symptoms: The patient has no apparent associated signs or symptoms. Severity of symptoms: At their worst the symptoms were mild moderate in the emergency department the symptoms are unchanged. The patient has not experienced similar symptoms in the past. 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 - Social history:: Smoking status: Patient/guardian denies using tobacco. - Ebola Screening: : Patient denies exposure to infectious person Patient denies travel to an Ebola-affected area in the 21 days before illness onset. - Family history:: not pertinent. ROS: 08:01 Constitutional: Negative for fever, chills, and weight loss, Eyes: Negative for injury, rosamaria pain, redness, and discharge, ENT: Negative for injury, pain, and discharge, Neck: Negative for injury, pain, and swelling, Cardiovascular: Negative for chest pain, palpitations, and edema, Respiratory: Negative for shortness of breath, cough, wheezing, and pleuritic chest pain, Back: Negative for injury and pain, : Negative for injury, bleeding, discharge, and swelling, MS/Extremity: Negative for injury and deformity, Skin: Negative for injury, rash, and discoloration, Neuro: Negative for headache, weakness, numbness, tingling, and seizure, Psych: Negative for depression, anxiety, suicide ideation, homicidal ideation, and hallucinations, Allergy/Immunology: Negative for hives, rash, and allergies, Endocrine: Negative for neck swelling, polydipsia, polyuria, polyphagia, and marked weight changes. 08:01 Abdomen/GI: Positive for abdominal pain, of the right upper quadrant, left upper quadrant, right lower quadrant and left lower quadrant. Exam: 08:01 Constitutional: This is a well developed, well nourished patient who is awake, alert, rosamaria and in no acute distress. Head/Face: Normocephalic, atraumatic. Eyes: Pupils equal round and reactive to light, extra-ocular motions intact. Lids and lashes normal. Conjunctiva and sclera are non-icteric and not injected. Cornea within normal limits. Periorbital areas with no swelling, redness, or edema. ENT: Nares patent. No nasal discharge, no septal abnormalities noted. Tympanic membranes are normal and external auditory canals are clear. Oropharynx with no redness, swelling, or masses, exudates, or evidence of obstruction, uvula midline. Mucous membranes moist. Neck: Trachea midline, no thyromegaly or masses palpated, and no cervical lymphadenopathy. Supple, full range of motion without nuchal rigidity, or vertebral point tenderness. No Meningismus. Chest/axilla: Normal chest wall appearance and motion. Nontender with no deformity. No lesions are appreciated. Cardiovascular: Regular rate and rhythm with a normal S1 and S2. No gallops, murmurs, or rubs. Normal PMI, no JVD. No pulse deficits. Respiratory: Lungs have equal breath sounds bilaterally, clear to auscultation and percussion. No rales, rhonchi or wheezes noted. No increased work of breathing, no retractions or nasal flaring. Back: No spinal tenderness. No costovertebral tenderness. Full range of motion. Female : Normal external genitalia. Skin: Warm, dry with normal turgor. Normal color with no rashes, no lesions, and no evidence of cellulitis. MS/ Extremity: Pulses equal, no cyanosis. Neurovascular intact. Full, normal range of motion. Neuro: Awake and alert, GCS 15, oriented to person, place, time, and situation. Cranial nerves II-XII grossly intact. Motor strength 5/5 in all extremities. Sensory grossly intact. Cerebellar exam normal. Normal gait. Psych: Awake, alert, with orientation to person, place and time. Behavior, mood, and affect are within normal limits. 08:01 Abdomen/GI: Inspection: abdomen appears normal, Bowel sounds: normal, Palpation: mild abdominal tenderness, in all quadrants, Liver: no appreciated palpable abnormalities, Hernia: not appreciated. Vital Signs: 08:18 BP 106 / 82; Pulse 61; Resp 18; Temp 98.3; Pulse Ox 100% on R/A; Pain 9/10; ph 09:34 BP 99 / 76; Pulse 67; Resp 18; Temp 98.0; Pulse Ox 99% on R/A; Pain 4/10; ph MDM: 07:42 Patient medically screened. [facility] 08:01 Data reviewed: vital signs, nurses notes, lab test result(s), EKG, radiologic studies, [facility] CT scan, ultrasound. 07/19 08:01 Order name: Basic Metabolic Panel; Complete Time: 08:42 [facility] 07/19 08:01 Order name: CBC with Diff; Complete Time: 08:42 [facility] 07/19 08:01 Order name: Creatinine for Radiology; Complete Time: 08:42 [facility] 07/19 08:01 Order name: Hepatic Function; Complete Time: 08:42 [facility] 07/19 08:01 Order name: Lipase; Complete Time: 08:42 [facility] 07/19 08:04 Order name: Urine Dipstick--Ancillary (enter results); Complete Time: 08:42 07/19 08:01 Order name: US Abdomen Limited; Complete Time: 08:55 [facility] 07/19 08:01 Order name: Abdomen Acute Series XRAY; Complete Time: 08:55 [facility] 07/19 08:04 Order name: Urine --Ancillary (enter results); Complete Time: 08:42 07/19 08:43 Order name: Urine Culture [facility] 07/19 08:01 Order name: IV Saline Lock; Complete Time: 08:07 [facility] 07/19 08:01 Order name: Labs collected and sent; Complete Time: 08:07 [facility] 07/19 08:01 Order name: Urine Dipstick-Ancillary (obtain specimen); Complete Time: 08:08 [facility] 07/19 08:01 Order name: Urine Test (obtain specimen); Complete Time: 08:08 [facility] 07/19 08:56 Order name: PO challenge: juice; Complete Time: 09:33 rosamaria Administered Medications: 08:17 Drug: NS 0.9% 1000 ml Route: IV; Rate: 1 bolus; Site: left antecubital; ph 09:34 Follow up: Response: No adverse reaction; IV Status: Completed infusion; IV Intake: ph 1000ml 08:18 Drug: morphine 2 mg Route: IVP; Site: left antecubital; ph 08:18 Drug: Zofran 4 mg Route: IVP; Site: left antecubital; ph 09:17 Follow up: Response: No adverse reaction ph 08:18 Drug: Pepcid 20 mg Route: IVP; Site: left antecubital; ph 09:17 Follow up: Response: No adverse reaction ph 09:17 Drug: morphine 2 mg Route: IVP; Site: left antecubital; ph 09:33 Follow up: Response: No adverse reaction; Pain is decreased; RASS: Alert and Calm (0) ph 09:18 Drug: Rocephin 1 grams Route: IV; Rate: per protocol; Site: left antecubital; ph 09:33 Follow up: Response: No adverse reaction; IV Status: Completed infusion ph Disposition: 07/19/19 08:45 Discharged to Home. Impression: Abdominal tenderness, Vomiting. - Condition is Stable. - Discharge Instructions: Abdominal Pain, Adult, Nausea and Vomiting, Adult, Nausea and Vomiting, Adult, [id number], Abdominal Pain, Adult, [id number]. - Prescriptions for Bentyl 20 mg Oral Tablet - take 1 tablet by ORAL route every 6 hours As needed; 20 tablet. Pepcid 20 mg Oral Tablet - take 1 tablet by ORAL route every 12 hours for 10 days; 20 tablet. Zofran 4 mg Oral Tablet - take 1 tablet by ORAL route every 12 hours As needed; 20 tablet. promethazine 25 mg Oral Tablet - take 1 tablet by ORAL route every 6 hours As needed; 14 tablet. - Medication Reconciliation Form, Thank You Letter, Antibiotic Education, Prescription Opioid Use, Family Work Release form. - Follow up: Ligia Mosley MD; When: 2 - 3 days; Reason: Recheck today's complaints, Continuance of care, Re-evaluation by your physician. - Problem is new. - Symptoms have improved. Signatures: Dispatcher [employer] David Jackson MD MD cha Smirch, Shelby, RN RN Nesbitt, Joanna, RN RN ph Corrections: (The following items were deleted from the chart) 09:45 08:45 07/19/2019 08:45 Discharged to Home. Impression: Abdominal tenderness; Vomiting. ph Condition is Stable. Forms are Medication Reconciliation Form, Thank You Letter, Antibiotic Education, Prescription Opioid Use. Follow up: Liiga Mosley; When: 2 - 3 days; Reason: Recheck today's complaints, Continuance of care, Re-evaluation by your physician. Problem is new. Symptoms have improved. rosamaria
--- NOTE | 2019-07-19 08:45 | ER ---
Nurse's Notes [facility] Name: Wendy Garland Age: 33 yrs Sex: Female : 1985 Arrival Date: 07/19/2019 Time: 07:40 Bed 5 Private MD: Ligia Mosley Diagnosis: Abdominal tenderness;Vomiting Presentation: 07/19 07:45 Presenting complaint: Patient states: generalized abd pain x 1.5 weeks. N/V that began ss 3 days ago. Patient states, "I was seen here a week ago and given medications to take for colitis, but nothing is helping, and it's getting worse. It is even worse after I eat.". Transition of care: patient was not received from another setting of care. Onset of symptoms was July 08, 2019. Risk Assessment: Do you want to hurt yourself or someone else? Patient reports no desire to harm self or others. Initial Sepsis Screen:. 07:45 Method Of Arrival: Ambulatory ss 07:45 Acuity: KIMBERLY 3 ss 08:25 Initial Sepsis Screen: Does the patient meet any 2 criteria? No. Patient's initial ph sepsis screen is negative. Does the patient have a suspected source of infection? No. Patient's initial sepsis screen is negative. Care prior to arrival: None. 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 - Social history:: Smoking status: Patient/guardian denies using tobacco. - Ebola Screening: : Patient denies exposure to infectious person Patient denies travel to an Ebola-affected area in the 21 days before illness onset. - Family history:: not pertinent. Screenin:24 Abuse screen: Denies threats or abuse. Denies injuries from another. Nutritional ph screening: No deficits noted. Tuberculosis screening: No symptoms or risk factors identified. Fall Risk None identified. Assessment: 08:19 General: Appears in no apparent distress. uncomfortable, well groomed, Behavior is ph cooperative, appropriate for age, anxious, crying. Pain: Complains of pain in abdomen Pain currently is 9 out of 10 on a pain scale. Quality of pain is described as crampy, Pain began greater than 1 week Is continuous. Neuro: Level of Consciousness is awake, alert, obeys commands, Oriented to person, place, time, situation. Cardiovascular: Capillary refill < 3 seconds Patient's skin is warm and dry. Respiratory: Airway is patent Respiratory effort is even, unlabored. GI: Abdomen is round non-distended, Abd is soft X 4 quads Abdomen is tender to palpation X 4 quads. Reports lower abdominal pain, upper abdominal pain, nausea, vomiting, soft, green stools occurring more frequently than usual. Derm: Skin is intact, Skin is pink, warm \\T\\ dry. Musculoskeletal: Circulation, motion, and sensation intact. Range of motion: intact in all extremities. Vital Signs: 08:18 BP 106 / 82; Pulse 61; Resp 18; Temp 98.3; Pulse Ox 100% on R/A; Pain 9/10; ph 09:34 BP 99 / 76; Pulse 67; Resp 18; Temp 98.0; Pulse Ox 99% on R/A; Pain 4/10; ph ED Course: 07:40 Patient arrived in ED. as 07:41 Ligia Mosley MD is Private Physician. as 07:42 David Nina MD is Attending Physician. rosamaria 07:45 Glory Trinidad, MARY ANNE is Primary Nurse. ss 07:46 Triage completed. ss 07:47 Arm band placed on right wrist. ss 08:24 Inserted saline lock: 22 gauge in left antecubital area, using aseptic technique. ph 08:25 Patient has correct armband on for positive identification. Bed in low position. Call ph light in reach. Side rails up X 1. Pulse ox on. NIBP on. Door closed. Noise minimized. Warm blanket given. 08:26 US Abdomen Limited In Process Unspecified. EDMS 08:37 Abdomen Acute Series XRAY In Process Unspecified. EDMS 08:44 Ligia Molsey MD is Referral Physician. rosamaria 09:34 No provider procedures requiring assistance completed. IV discontinued, intact, ph bleeding controlled, No redness/swelling at site. Pressure dressing applied. Administered Medications: 08:17 Drug: NS 0.9% 1000 ml Route: IV; Rate: 1 bolus; Site: left antecubital; ph 09:34 Follow up: Response: No adverse reaction; IV Status: Completed infusion; IV Intake: ph 1000ml 08:18 Drug: morphine 2 mg Route: IVP; Site: left antecubital; ph 08:18 Drug: Zofran 4 mg Route: IVP; Site: left antecubital; ph 09:17 Follow up: Response: No adverse reaction ph 08:18 Drug: Pepcid 20 mg Route: IVP; Site: left antecubital; ph 09:17 Follow up: Response: No adverse reaction ph 09:17 Drug: morphine 2 mg Route: IVP; Site: left antecubital; ph 09:33 Follow up: Response: No adverse reaction; Pain is decreased; RASS: Alert and Calm (0) ph 09:18 Drug: Rocephin 1 grams Route: IV; Rate: per protocol; Site: left antecubital; ph 09:33 Follow up: Response: No adverse reaction; IV Status: Completed infusion ph Intake: 09:34 IV: 1000ml; Total: 1000ml. ph Outcome: 08:45 Discharge ordered by MD. blank 09:45 Discharged to home via wheelchair, with family. ph 09:45 Condition: good 09:45 Discharge instructions given to patient, Instructed on discharge instructions, follow up and referral plans. medication usage, Demonstrated understanding of instructions, follow-up care, medications, Prescriptions given X 3. 09:45 Patient left the ED. ph Signatures: Dispatcher [employer] David Jackson MD MD cha Martinez, Amelia as Smirch, Shelby, RN RN Joanna Nesbitt RN RN ph
--- NOTE | 2019-07-19 08:47 | RAD REPORT ---
EXAM DESCRIPTION: US - Abdomen Exam Limited - 07/19/2019 8:38 am CLINICAL HISTORY: ABD PAIN COMPARISON: Abdomen Pelvis W Contrast dated 07/09/2019 FINDINGS: No gallstones, sludge or other abnormalities within the gallbladder lumen. There is no wal l thickening or pericholecystic fluid. No common duct stone or biliary tree dilatation identified. IMPRESSION: Normal gallbladder and biliary tree ultrasound.
--- NOTE | 2019-07-19 08:49 | RAD REPORT ---
EXAM DESCRIPTION: RAD - Abdomen Acute Series - 07/19/2019 8:38 am CLINICAL HISTORY: ABD PAIN COMPARISON: Chest Pa And Lat (2 Views) dated 06/28/2018; Chest Pa And Lat (2 Views) dated 05/23/2016; FINDINGS: Lungs are clear. Heart size and pulmonary vasculature are normal. No pleural effusion, pne umothorax or other acute cardiopulmonary process seen. Bowel gas pattern is nonspecific. No bowel obstruction, free air or other acute findings. No suspicio us calcifications. No other suspicious for significant findings. Thoracolumbar scoliosis again noted. No acute bone finding. IMPRESSION: Negative acute abdomen series for acute or significant finding.
[2019-07-19] MEDS ORDERED: CEFTRIAXONE/SWI 1gm 1 GM/10 ML SYR ONE (09:16)
[2019-07-19 10:09] VITALS: BP 99/76; TEMP 98; O2SAT 99
== END 2019-07-19 09:45 | disposition home or self-care (01) ==
LOC: ER 07:38
DX: R10.819 Abdominal tenderness, unspecified site (principal); R11.10 Vomiting, unspecified
CPT/HCPCS: 36415; 74022; 76705; 80048; 80076; 81003; 81025; 83690; 85025; 87086; 87088; 96361; 96374; 96375; 99284; J0696; J2270; J2405; J7030

== ENCOUNTER 2019-08-05 21:03 | Emergency (ER) | payer SELFPAY ==
--- OUTSIDE RECORDS SUMMARY | 2019-08-05 21:05 | XMS REPORT ---
:1985 [facility] Providers Name Role Phone Melany [...] End Status Dosage System Date Date Naproxen [facility] 37041936628 500 MG Orally Oct 13February Active 1 tablet with every 12 hrs as 2018 04, food or milk needed for 2019 as needed CASTANEDA/pain Nasonex ND 34864732667 50 MCG/ACT Active 2 sprays in Nasally Once a each nostril day Abilify [facility] 92298085486 5 MG Orally Active 1 tablet Once a day Vitamin D [facility] 14957884417 93695 UNIT Jul 30, Oct Active 1 capsule (Ergocalciferol Orally Once a 2018 03, ) week 2019 Albuterol [facility] 78780994396 (2.5 MG/3ML) Oct 13, Active 3 ml as Sulfate 0.083% 2019 needed for Nebulized Every sob/wheezing 4-6 hours Citalopram ND 53619133330 20 mg Orally Active 1 tablet Hydrobromide Once a day Permethrin [facility] 72685272884 5 % Externally Active 1 application Once a day to affected area Gabapentin ND 37083218638 300 MG Orally 1 Active as directed capsule in am and 2 capsules in pm Ferrous Sulfate [facility] 87507553737 325 (65 Fe) MG Oct 25, Active 1 tablet Orally Twice a 2018 day; start off at once daily and titrate up to twice daily Diflucan [facility] 81396842003 150 MG Orally 1 Oct 13, Active as directed tablet now; 2018 then repeat after completing abx. Neurontin [facility] 82073034481 300 MG Orally Active 1 capsule in Three times a the am , 1 day capsule midday and 2 capsules in te pm ProAir HFA [facility] 24724770754 108 (90 Base) Active 2 puffs as MCG/ACT needed for Inhalation sob/wheezing every 4-6 hrs Doxepin HCl [facility] 54921813779 10 MG Orally Active 1 capsule at Once a day bedtime Results No Known Results Summary Purpose eClinicalWorks Submission
--- OUTSIDE RECORDS SUMMARY | 2019-08-05 21:05 | XMS REPORT ---
[...] Status Dosage System Date Date Neurontin ND 95428127779 300 MG Orally Active 1 capsule in Three times a the am , 1 day capsule midday and 2 capsules in te pm Abilify [facility] 36322576055 30 MG Orally Active 1 tablet Once a day ProAir HFA [facility] 84419907383 108 (90 Base) Active 2 puffs as MCG/ACT needed for Inhalation sob/wheezing every 4-6 hrs Naproxen ND 69838083669 500 MG Orally Oct 13Oct Active 1 tablet with every 12 hrs as 2018, food or milk needed for 2019 as needed CASTANEDA/pain Gabapentin ND 09457418395 300 MG Orally Active 1 capsule Twice daily Diflucan ND 92675323631 150 MG Orally 1 Oct 13, Active as directed tablet now; 2019 then repeat after completing abx. Nasonex [facility] 49894769895 50 MCG/ACT Active 2 sprays in Nasally Once a each nostril day Permethrin ND 28119972339 5 % Externally Active 1 application Once a day to affected area Doxepin HCl ND 00179237631 10 MG Orally Active 1 capsule at Once a day bedtime Albuterol ND 68259345691 (2.5 MG/3ML) Oct 13, Active 3 ml as Sulfate 0.083% 2019 needed for Nebulized Every sob/wheezing 4-6 hours Vitamin D [facility] 78942866727 94225 UNIT Jul 30Oct Active 1 capsule (Ergocalciferol Orally Once a 2017 07, ) week 2019 Citalopram [facility] 95320765303 20 MG Orally Active 1 tablet Hydrobromide Once a day Augmentin [facility] 38945003777 500-125 MG Oct 13Oct Active 1 tablet Orally every 12 2018 02, hrs 2019 Results Name Result Date Reference Range Unit Abnormality Flag Rapid Strep FLU TEST ----B Negative [id number] ----A Negative [id number] Summary Purpose eClinicalWorks Submission
[2019-08-05 22:02] LABS: Basophils % 0.4 % (0-1.3); Hematocrit 29.8 % (36.0-45.0); Lymphocytes % 31.6 % (15.3-44.8); MPV 9.7 fL (7.6-11.3); RBC Red Blood Cell Count 3.59 M/uL (3.86-4.86)
[2019-08-05 22:03] LABS: Albumin 3.6 g/dL (3.4-5.0); Bilirubin Direct 0.2 mg/dL (0-0.2); Bilirubin Total 0.6 mg/dL (0.2-1.0); Potassium 3.6 mmol/L (3.5-5.1); Protein, Total 7.8 g/dL (6.4-8.2)
[2019-08-05 22:09] LABS: Urine Blood NEGATIVE (NEG); Urine Glucose NEGATIVE (NEG); Urine Protein NEGATIVE (NEG)
[2019-08-05] MEDS ORDERED: ONDANSETRON 4 MG/2 ML VIAL ONE (22:17)
[2019-08-05] MEDS ORDERED: DICYCLOMINE HCL 10 MG CAP ONE (22:17)
[2019-08-06] MEDS ORDERED: PANTOPRAZOLE 40MG TABLET PO ONE (00:10)
[2019-08-06] MEDS ORDERED: MORPHINE 2 MG/ML SYR ONE (00:10)
--- NOTE | 2019-08-06 00:11 | ER ---
Nurse's Notes [facility] Name: Wendy Garland Age: 33 yrs Sex: Female : 1985 Arrival Date: 08/05/2019 Time: 21:06 Bed 26 Private MD: Ligia Mosley Diagnosis: Diarrhea, unspecified;Gastrointestinal hemorrhage, unspecified Presentation: 08/05 21:15 Presenting complaint: Patient states: PT was last seen in ER Jul 19 for same symptoms. PT was diagnosed with Colitis and advised to see Gi Specialist, Pt was unable to make a follow up appointment. Pt now C/O of abdominal pain, nausea, diarrhea and bloody stool. Transition of care: patient was not received from another setting of care. Onset of symptoms was August 05, 2019. Risk Assessment: Do you want to hurt yourself or someone else? Patient reports no desire to harm self or others. Initial Sepsis Screen: Does the patient meet any 2 criteria? No. Patient's initial sepsis screen is negative. Does the patient have a suspected source of infection? Yes: Acute abdominal pain. Care prior to arrival: None. 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 - Social history:: Smoking status: Patient/guardian denies using tobacco. - Ebola Screening: : Patient negative for fever greater than or equal to 101.5 degrees Fahrenheit, and additional compatible Ebola Virus Disease symptoms Patient denies exposure to infectious person. Screenin:15 Abuse screen: Denies threats or abuse. Denies injuries from another. Nutritional screening: No deficits noted. Tuberculosis screening: No symptoms or risk factors identified. Fall Risk None identified. Assessment: 21:15 General: Appears in no apparent distress. Behavior is calm, cooperative, appropriate for age. Pain: Complains of pain in abdomen Pain does not radiate. Pain currently is 7 out of 10 on a pain scale. Quality of pain is described as crampy, Pain began 2 weeks ago. Neuro: Level of Consciousness is awake, alert, obeys commands, Oriented to person, place, time, situation, Appropriate for age. Cardiovascular: Heart tones S1 S2. Respiratory: Airway is patent Respiratory effort is even, unlabored, Respiratory pattern is regular, symmetrical. GI: Abdomen is flat, non-distended, Bowel sounds present X 4 quads. Abd is soft. GI: Reports cramping, diarrhea, rectal bleeding, nausea. : No signs and/or symptoms were reported regarding the genitourinary system. EENT: No signs and/or symptoms were reported regarding the EENT system. Derm: Skin is intact, is healthy with good turgor, Skin is pink, warm \T\ dry. normal. Musculoskeletal: Circulation, motion, and sensation intact. 23:22 Reassessment: Patient appears in no apparent distress at this time. No changes from previously documented assessment. Patient and/or family updated on plan of care and expected duration. Pain level reassessed. Patient is alert, oriented x 3, equal unlabored respirations, skin warm/dry/pink. Vital Signs: 21:15 BP 96 / 77; Pulse 72; Resp 18; Temp 98.2; Pulse Ox 100% ; Weight 61.23 kg; Height 5 ft. wh 1 in. (154.94 cm); 22:05 BP 121 / 72; Pulse 72; Resp 18; Pulse Ox 99% ; wh 23:23 BP 102 / 78; Pulse 62; Resp 18; Pulse Ox 99% on R/A; wh 08/06 00:35 BP 106 / 73; Pulse 65; Resp 16; Pulse Ox 100% on R/A; rv 08/05 21:15 Body Mass Index 25.51 (61.23 kg, 154.94 cm) ED Course: 08/05 21:06 Patient arrived in ED. es 21:07 Ligia Mosley MD is Private Physician. es 21:14 Carlos Valdes MD is Attending Physician. tw4 21:14 Reno Dior is Primary Nurse. wh 21:15 Patient has correct armband on for positive identification. Placed in gown. Bed in low wh position. Call light in reach. Side rails up X 1. Pulse ox on. NIBP on. 21:15 Arm band placed on. wh 21:30 Inserted saline lock: 22 gauge in left antecubital area, using aseptic technique. Blood collected. 21:51 Triage completed. 08/06 00:12 Ligia Mosley MD is Referral Physician. tw4 00:12 Nitin So MD is Referral Physician. tw4 00:36 No provider procedures requiring assistance completed. IV discontinued, intact, rv bleeding controlled, No redness/swelling at site. Pressure dressing applied. Administered Medications: 08/05 22:18 Drug: Zofran 4 mg Route: IVP; Site: left antecubital; 08/06 00:35 Follow up: Response: No adverse reaction rv 08/05 22:21 Drug: Bentyl 20 mg Route: PO; 08/06 00:35 Follow up: Response: No adverse reaction rv 00:10 Drug: ProTONIX 40 mg Route: PO; rv 00:34 Follow up: Response: No adverse reaction rv 00:10 Drug: morphine 2 mg {Note: rass 0.} Route: IVP; Site: left antecubital; rv 00:34 Follow up: Response: No adverse reaction; RASS: Alert and Calm (0) rv Outcome: 00:11 Discharge ordered by . tw4 00:36 Discharged to home ambulatory, with family. rv 00:36 Condition: good 00:36 Discharge instructions given to patient, Instructed on discharge instructions, follow up and referral plans. medication usage, Demonstrated understanding of instructions, follow-up care, medications, Prescriptions given X 1. 00:36 Patient left the ED. rv Signatures: Celine Bowie Winsy Carlos Valdes MD MD tw4 Octavio Morris RN RN rv
--- NOTE | 2019-08-06 00:12 | EDPHYS ---
Physician Documentation [facility] Name: Wendy Garland Age: 33 yrs Sex: Female : 1985 Arrival Date: 08/05/2019 Time: 21:06 Bed 26 Private MD: Ligia Mosley ED Physician Carlos Valdes HPI: 08/06 06:55 This 33 yrs old Female presents to ER via Ambulatory with complaints of tw4 Nausea, Diarrhea, Fever. 06:55 The patient presents to the emergency department with nausea, vomiting, diarrhea. tw4 Onset: The symptoms/episode began/occurred today. Possible causes: flare up of bowel problem. The symptoms are aggravated by nothing. The symptoms are alleviated by nothing. Severity of symptoms: At their worst the symptoms were moderate in the emergency department the symptoms are unchanged. 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 - Social history:: Smoking status: Patient/guardian denies using tobacco. - Ebola Screening: : Patient negative for fever greater than or equal to 101.5 degrees Fahrenheit, and additional compatible Ebola Virus Disease symptoms Patient denies exposure to infectious person. ROS: 08/06 06:55 Constitutional: Negative for fever, chills, and weight loss, Cardiovascular: Negative tw4 for chest pain, palpitations, and edema, Respiratory: Negative for shortness of breath, cough, wheezing, and pleuritic chest pain. Back: Negative for injury and pain, MS/Extremity: Negative for injury and deformity, Skin: Negative for injury, rash, and discoloration. Abdomen/GI: Positive for abdominal pain, nausea and vomiting, nausea, vomiting, and diarrhea, vomiting, diarrhea, rectal bleeding. Exam: 06:55 Constitutional: This is a well developed, well nourished patient who is awake, alert, tw4 and in no acute distress. Head/Face: Normocephalic, atraumatic. Chest/axilla: Normal chest wall appearance and motion. Nontender with no deformity. No lesions are appreciated. Cardiovascular: Regular rate and rhythm with a normal S1 and S2. No gallops, murmurs, or rubs. Normal PMI, no JVD. No pulse deficits. Respiratory: Lungs have equal breath sounds bilaterally, clear to auscultation and percussion. No rales, rhonchi or wheezes noted. No increased work of breathing, no retractions or nasal flaring. Abdomen/GI: Soft, non-tender, with normal bowel sounds. No distension or tympany. No guarding or rebound. No evidence of tenderness throughout. Back: No spinal tenderness. No costovertebral tenderness. Full range of motion. MS/ Extremity: Pulses equal, no cyanosis. Neurovascular intact. Full, normal range of motion. Neuro: Awake and alert, GCS 15, oriented to person, place, time, and situation. Cranial nerves II-XII grossly intact. Motor strength 5/5 in all extremities. Sensory grossly intact. Cerebellar exam normal. Normal gait. Vital Signs: 08/05 21:15 BP 96 / 77; Pulse 72; Resp 18; Temp 98.2; Pulse Ox 100% ; Weight 61.23 kg; Height 5 ft. wh 1 in. (154.94 cm); 22:05 BP 121 / 72; Pulse 72; Resp 18; Pulse Ox 99% ; wh 23:23 BP 102 / 78; Pulse 62; Resp 18; Pulse Ox 99% on R/A; wh 08/06 00:35 BP 106 / 73; Pulse 65; Resp 16; Pulse Ox 100% on R/A; rv 08/05 21:15 Body Mass Index 25.51 (61.23 kg, 154.94 cm) MDM: 08/05 21:14 Patient medically screened. tw4 08/06 06:55 Differential diagnosis: Nonspecific abd pain, gastritis, cholecystitis. Data reviewed: tw4 vital signs, nurses notes. Counseling: I had a detailed discussion with the patient and/or guardian regarding: the historical points, exam findings, and any diagnostic results supporting the discharge/admit diagnosis, lab results. Special discussion: Based on the patient's Hx, exam, and Dx evaluation, there is no indication for emergent surgery or inpatient Tx. It is understood by the patient/guardian that if the Sx's persist or worsen they need to return immediately for re-evaluation. I discussed with the patient/guardian in detail that at this point there is no indication for admission to the hospital. It is understood, however, that if the symptoms persist or worsen the patient needs to return immediately for re-evaluation. 08/05 21:14 Order name: Basic Metabolic Panel [facility] 08/05 21:14 Order name: CBC with Diff [facility] 08/05 21:14 Order name: Creatinine for Radiology [facility] 08/05 21:14 Order name: Hepatic Function [facility] 08/05 21:14 Order name: Lipase [facility] 08/05 21:39 Order name: Urine Dipstick--Ancillary (enter results) [facility] 08/05 21:14 Order name: IV Saline Lock; Complete Time: 21:40 [facility] 08/05 21:14 Order name: Labs collected and sent; Complete Time: 21:41 [facility] 08/05 21:38 Order name: Urine Dipstick-Ancillary (obtain specimen); Complete Time: 21:38 08/05 21:39 Order name: Urine --Ancillary (enter results) [facility] 08/05 21:38 Order name: Urine Test (obtain specimen); Complete Time: 21:38 Administered Medications: 08/05 22:18 Drug: Zofran 4 mg Route: IVP; Site: left antecubital; 08/06 00:35 Follow up: Response: No adverse reaction 08/05 22:21 Drug: Bentyl 20 mg Route: PO; 08/06 00:35 Follow up: Response: No adverse reaction rv 00:10 Drug: ProTONIX 40 mg Route: PO; rv 00:34 Follow up: Response: No adverse reaction rv 00:10 Drug: morphine 2 mg {Note: rass 0.} Route: IVP; Site: left antecubital; rv 00:34 Follow up: Response: No adverse reaction; RASS: Alert and Calm (0) rv Disposition: 08/06/19 00:11 Discharged to Home. Impression: Diarrhea, unspecified, Gastrointestinal hemorrhage, unspecified. - Condition is Stable. - Discharge Instructions: Diarrhea, Adult, Gastrointestinal Bleeding. - Prescriptions for Lomotil 2.5- 0.025 mg Oral Tablet - take 2 tablet by ORAL route once daily As needed; 20 tablet. - Medication Reconciliation Form, Thank You Letter, Antibiotic Education, Prescription Opioid Use form. - Follow up: Private Physician; When: Upon discharge from the Emergency Department; Reason: Recheck today's complaints, Continuance of care. Follow up: Ligia Mosley MD; When: Upon discharge from the Emergency Department; Reason: Recheck today's complaints, Continuance of care. Follow up: Nitin So MD; When: Upon discharge from the Emergency Department; Reason: If symptoms return, Recheck today's complaints. - Problem is new. - Symptoms have improved. Signatures: Dispatcher [employer] EDMS Reno Dior Terrence, MD MD tw4 Octavio Morris, RN RN rv Corrections: (The following items were deleted from the chart) 00:12 00:11 08/06/2019 00:11 Discharged to Home. Impression: Diarrhea, unspecified; tw4 Gastrointestinal hemorrhage, unspecified. Condition is Stable. Forms are Medication Reconciliation Form, Thank You Letter, Antibiotic Education, Prescription Opioid Use. Follow up: Private Physician; When: Upon discharge from the Emergency Department; Reason: Recheck today's complaints, Continuance of care. Problem is new. Symptoms have improved. tw4 00:36 00:12 08/06/2019 00:11 Discharged to Home. Impression: Diarrhea, unspecified; rv Gastrointestinal hemorrhage, unspecified. Condition is Stable. Discharge Instructions: Diarrhea, Adult, Gastrointestinal Bleeding. Prescriptions for Lomotil 2.5-0.025 mg Oral Tablet - take 2 tablet by ORAL route once daily As needed; 20 tablet. and Forms are Medication Reconciliation Form, Thank You Letter, Antibiotic Education, Prescription Opioid Use. Follow up: Private Physician; When: Upon discharge from the Emergency Department; Reason: Recheck today's complaints, Continuance of care. Follow up: Ligia Mosley; When: Upon discharge from the Emergency Department; Reason: Recheck today's complaints, Continuance of care. Follow up: Nitin So; When: Upon discharge from the Emergency Department; Reason: If symptoms return, Recheck today's complaints. Problem is new. Symptoms have improved. tw4
[2019-08-06 01:48] VITALS: TEMP 98.2
[2019-08-06 01:52] VITALS: BP 106/73; O2SAT 100
== END 2019-08-06 00:36 | disposition home or self-care (01) ==
LOC: ER 21:03
DX: K92.2 Gastrointestinal hemorrhage, unspecified (principal)
CPT/HCPCS: 36415; 80048; 80076; 81003; 81025; 83690; 85025; 96374; 96375; 99284; J2270; J2405

== ENCOUNTER → 2023-10-23 | Emergency (ER) | payer OTHER, SELFPAY ==
[~2023-10-23] MED LIST: ACETAMINOPHEN 500 MG TAB ONE; TENECTEPLASE 50 MG/10 ML VIAL IV ONE
--- OUTSIDE RECORDS SUMMARY | 2023-10-23 23:31 | XMS REPORT | Clinical Summary ---
Author Name Unknown Organization [facility] Address [address] [place] [address] Care Team Providers Care Cut Out Operator Name Role Phone Unavailable Primary Care Provider Unavailabl e Social History Tobacco Use Types Packs/Day Years Used Date Smoking Tobacco: Never Assessed Sex and Gender Information Value Date Recorded Sex Assigned at Not on file Gender Identity Not on file Sexual Orientation Not on file Job Start Date Occupation Industry Not on file Not on file Not on file Plan of Treatment Not on file
[2023-10-24 00:15] LABS: Absolute Lymphocytes (CBC) 2.4 K/uL (0.7-4.9); Hematocrit 35.6 % (36.0-45.0); Lymphocytes % 21.6 % (15.3-44.8); MCV 89.4 fL (80-100); MPV 8.5 fL (7.6-11.3); Platelets 395 thou/uL (152-406); RBC Red Blood Cell Count 3.98 M/uL (3.86-4.86)
[2023-10-24 00:25] LABS: Protime INR 1.04
[2023-10-24 00:36] LABS: Barbiturates NEGATIVE (NEGATIVE); Benzodiazepines NEGATIVE (NEGATIVE); Cocaine NEGATIVE (NEGATIVE); METHAMPHETAM NEGATIVE (NEGATIVE); Methadone NEGATIVE (NEGATIVE); Opiates NEGATIVE (NEGATIVE); Phencyclidine NEGATIVE (NEGATIVE); THC Cannibis NEGATIVE (NEGATIVE)
[2023-10-24 01:13] LABS: Potassium 3.4 mEq/L (3.5-5.1); Sodium Level 136 mEq/L (136-145)
[2023-10-24 01:14] LABS: BUN Blood Urea Nitrogen 13 mg/dL (7-18); Bicarbonate 25 mEq/L (21-32); Glomerular Filtration Rate 81 ml/min (=/>90); Glucose Level 107 mg/dL (74-106); HCG, Quantitative < 1 mIU/mL (1-3); Troponin High Sensitivity 3.2 (<58.9)
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
[2023-10-24 05:15] VITALS: O2SAT 100
[2023-10-24 05:32] VITALS: BP 110/82
--- NOTE | 2023-10-24 21:35 | RAD REPORT ---
EXAM DESCRIPTION: CT HEAD WITHOUT IV CONTRAST CLINICAL HISTORY: HEADACHE COMPARISON: None. TECHNIQUE: CT HEAD WITHOUT IV CONTRAST on 10/24/2023 3:39 AM RAT TRAPPER This exam was performed according to our departmental dose-optimization program, which includes autom ated exposure control, adjustment of the mA and/or kV according to patient size and/or use of iterati ve reconstruction technique. FINDINGS: There is no acute hemorrhage, mass effect or midline shift. Luciano-white differentiation is preserved. There is no hydrocephalus. There is no significant volume loss for age. The calvarium is intact. Orbits and globes are unremarkable. The paranasal sinuses are clear. Mastoid air cells are clear. IMPRESSION: No acute intracranial findings. Electronically sigEed by: Buck Riley MD 10/24/2023 05:15 AM RAT TRAPPER Due to temporary technical issues with the PACS/Fluency reporting system, reports are being signed by the in house radiologists without review as a courtesy to insure prompt reporting. The interpreting radiologist is fully responsible for the content of the report.
--- NOTE | 2023-10-24 21:46 | RAD REPORT ---
EXAM DESCRIPTION: Head angio (accession [id number]), Neck Angio (accession [id number]) RadLex: CT HEAD ANGIOGRAPHY WITH IV CONTRAST, CT NECK ANGIOGRAPHY WITH IV CONTRAST CLINICAL HISTORY: 38 years Female; STROKE ALERT; Bed Name: 19 TECHNIQUE: CT angiogram of the head and neck using intravenous contrast.. MIP reconstructions were p erformed. Stenosis measurements performed using NASCET criteria. All CT scans at this facility use dose modulation, iterative reconstruction, and/or weight based dosi ng when appropriate to reduce radiation dose to as low as reasonably achievable. COMPARISON: CT head 10/23/2023. FINDINGS: BRAIN (POST-CONTRAST): Enhancement: No abnormal enhancement. Please see same-day noncontrast CT head for additional intracranial findings. INTRACRANIAL ANGIOGRAM: Anterior circulation: No flow-limiting stenosis or aneurysm. Posterior circulation: No flow-limiting stenosis or aneurysm. Dural venous sinuses: Patent. Additional comment: None. EXTRACRANIAL ANGIOGRAM: Proximal great vessels: No flow-limiting stenosis or dissection. Cervical vessels: No flow-limiting stenosis or dissection. Additional comment: None. NECK: Soft tissues: Normal. Bones: No acute findings. Lung apices: Clear. Additional comment: None. IMPRESSION: 1. No significant stenosis of the cervical carotid or vertebral arteries. 2. No acute intracranial large vessel occlusion or focal intracranial stenosis. Electronically signed by: Josh Shaw MD 10/24/2023 01:01 AM RECREATION THERAPY AIDES TEACHER Due to temporary technical issues with the PACS/Fluency reporting system, reports are being signed by the in house radiologists without review as a courtesy to insure prompt reporting. The interpreting radiologist is fully responsible for the content of the report.
--- NOTE | 2023-10-24 21:51 | RAD REPORT ---
EXAM DESCRIPTION: Head angio (accession [id number]), Neck Angio (accession [id number]) RadLex: CT HEAD ANGIOGRAPHY WITH IV CONTRAST, CT NECK ANGIOGRAPHY WITH IV CONTRAST CLINICAL HISTORY: 38 years Female; STROKE ALERT; Bed Name: 19 TECHNIQUE: CT angiogram of the head and neck using intravenous contrast.. MIP reconstructions were p erformed. Stenosis measurements performed using NASCET criteria. All CT scans at this facility use dose modulation, iterative reconstruction, and/or weight based dosi ng when appropriate to reduce radiation dose to as low as reasonably achievable. COMPARISON: CT head 10/23/2023. FINDINGS: BRAIN (POST-CONTRAST): Enhancement: No abnormal enhancement. Please see same-day noncontrast CT head for additional intracranial findings. INTRACRANIAL ANGIOGRAM: Anterior circulation: No flow-limiting stenosis or aneurysm. Posterior circulation: No flow-limiting stenosis or aneurysm. Dural venous sinuses: Patent. Additional comment: None. EXTRACRANIAL ANGIOGRAM: Proximal great vessels: No flow-limiting stenosis or dissection. Cervical vessels: No flow-limiting stenosis or dissection. Additional comment: None. NECK: Soft tissues: Normal. Bones: No acute findings. Lung apices: Clear. Additional comment: None. IMPRESSION: 1. No significant stenosis of the cervical carotid or vertebral arteries. 2. No acute intracranial large vessel occlusion or focal intracranial stenosis. Electronically signed by: Josh Shaw MD 10/24/2023 01:01 AM TRUST ADMINISTRATOR Due to temporary technical issues with the PACS/Fluency reporting system, reports are being signed by the in house radiologists without review as a courtesy to insure prompt reporting. The interpreting radiologist is fully responsible for the content of the report.
--- NOTE | 2023-10-24 21:54 | RAD REPORT ---
EXAM DESCRIPTION: CT Stroke Brain W/O Contrast CLINICAL HISTORY: STROKE. TECHNIQUE: Noncontrast CT through the head was performed. Axial, coronal, and sagittal reconstructio ns were created and sent to PACS. This exam was performed according to our departmental dose-optimiza tion program which includes use of Automated Exposure Control, adjustment of the mA and/or kV accordi ng to patient size and/or use of iterative reconstruction technique. COMPARISON: CT head from May 15, 2014. FINDINGS: Mild streak artifact adjacent to the calvarium. There is no intra-axial or extra-axial ble ed seen. There is no mass or mass effect. Unchanged normal variant slight asymmetry of the lateral ve ntricles, right slightly larger than left. The orbital contents appear unremarkable. Mild mucosal thickening in the left maxillary sinus. Small mucosal retention cyst in the right maxill cristhian sinus. The remaining visualized paranasal sinuses and mastoid air cells are patent. No acute frac ture is identified. IMPRESSION: No acute intracranial abnormality identified. THIS REPORT CONTAINS FINDINGS THAT MAY BE CRITICAL TO PATIENT CARE: The findings were verbally discus sed via telephone conference with Dr. Mayda Up on 10/23/2023 11:50 PM TRICOT KNITTING MACHINE OPERATOR. The results were acknowledged and understood. Electronically signed by: Huong Hamlin MD 10/23/2023 11:50 PM TRICOT KNITTING MACHINE OPERATOR Due to temporary technical issues with the PACS/Fluency reporting system, reports are being signed by the in house radiologists without review as a courtesy to insure prompt reporting. The interpreting radiologist is fully responsible for the content of the report.
--- NOTE | 2023-10-24 21:55 | RAD REPORT ---
EXAM DESCRIPTION: XR Chest 1 View AP CLINICAL HISTORY: Chest Pain COMPARISON: None. TECHNIQUE: Chest 1 View AP FINDINGS: Mild decreased inspiration (decreased lung volumes) makes evaluation more difficult and ma y accentuate heart size and pulmonary vascularity. Trachea midline. Heart size and pulmonary vessels within normal limits. Lungs clear without evidence of consolidation, mass, or significant pulmonary edema. No significant pleural effusion or pneumothorax. Bones unremarkable. IMPRESSION: Unremarkable chest radiograph. Electronically signed by: Kendell Queen MD 10/24/2023 01:10 AM FEEDER WORKER POWER UNIT OPERATOR Due to temporary technical issues with the PACS/Fluency reporting system, reports are being signed by the in house radiologists without review as a courtesy to insure prompt reporting. The interpreting radiologist is fully responsible for the content of the report.
--- NOTE | 2023-10-26 15:06 | EKG ---
Test Date: 2023-10-23 Test Time: 23:47:11 Vice President Of Recruiting: VEGA MEASUREMENT RESULTS: Intervals: Rate: 79 GA: 114 QRSD: 94 QT: 378 QTc: 433 [place]: P: -1 GA: 114 QRS: 49 T: 33 INTERPRETIVE STATEMENTS: Normal sinus rhythm Inferior infarct, age undetermined Abnormal ECG No previous ECG available for comparison Electronically Signed On 10-26-23 15:01:15 ONLINE PUBLISHER by Allan Painting
== END ==
LOC: ER 23:28
DX: I67.81 Acute cerebrovascular insufficiency (principal); R29.711 NIHSS score 11; Z88.6 Allergy status to analgesic agent; Z87.820 Personal history of traumatic brain injury
CPT/HCPCS: 36415; 70450; 70496; 70498; 71045; 82565; 82947; 93005; Q9967